=== PATIENT | female | born 1985 | race Caucasian/White ===

== ENCOUNTER 2017-11-09 15:39 | Inpatient (IN) ==
[2017-11-09] MEDS ORDERED: Morphine Inj 4 MG/ML Vial IV.PUSH ONE (16:44)
[2017-11-09] MEDS: Sod Chloride 0.9% Inj 1,000 ML IV.SIG SCH ×4 (16:50→23:50)
[2017-11-09 16:56] LABS: Baso # (Auto) 0.1 th/mm3 (0.0-0.2); Baso % (Auto) 0.5 % (0.0-2.0); Eos % (Auto) 0.2 % (0.0-4.0); Hematocrit 37.7 % (35.0-46.0); Hemoglobin 13.2 gm/dL (11.6-15.3); Lymph # (Auto) 0.9 th/mm3 (1.0-4.8); Lymph % (Auto) 4.4 % (9.0-44.0); Mean Corpuscular Hemoglobin 30.9 pg (27.0-34.0); Mean Corpuscular Volume 88.4 fL (80.0-100.0); Mean Platelet Volume 8.1 fL (7.0-11.0); Mono # (Auto) 0.8 th/mm3 (0.0-0.9); Mono % (Auto) 3.9 % (0.0-8.0); Neut # (Auto) 19.3 th/mm3 (1.8-7.7); Platelet Count 292 th/mm3 (150-450); Red Blood Count 4.26 mil/mm3 (4.00-5.30); Red Cell Distribution Width 12.5 % (11.6-17.2); White Blood Count 21.1 th/mm3 (4.0-11.0)
[2017-11-09 17:03] LABS: Potassium 4.7 meq/L (3.5-5.1)
[2017-11-09 17:05] LABS: Calcium 8.6 mg/dL (8.5-10.1)
[2017-11-09 17:06] LABS: Carbon Dioxide 27.6 meq/L (21.0-32.0)
--- NOTE | 2017-11-09 17:18 | ED ---
HPI General Chief Complaint: Shortness of Breath/Dyspnea Stated Complaint: Back Pain/Rt Shoulder Pain/Difficulting Breathing Source: patient Mode of arrival: ambulatory Limitations: no limitations History of Present Illness MD complaint: chest pain Complete Quality Measures for STEMI Alert Patients STEMI Alert: No Onset (ago): day(s) (1) Duration: constant (It does wax and wane. She states that it is occasionally exquisitely tender to the touch.) and progressively worsening Pain location: right chest Severity scale (1-10): 10 Quality: sharp Pain radiation: RUE (Shoulder) Relieving factors: nothing Exacerbating factors: nothing Treatments prior to arrival chest pain: none Related Data Allergies Allergy/AdvReac Type Severity Reaction Status Date / Time aripiprazole Allergy Severe TONGUE Verified 11/09/17 16:17 SWELLING buspirone Allergy Severe VERY Verified 11/09/17 16:17 AGGRESSIVE BEHAVIOR, RASH Review of Systems ROS: all other systems reviewed are negative [facility] Medical History Medical History Bipolar 1 disorder (Chronic) Surgical History Surgical History History of tonsillectomy and adenoidectomy (Acute) Social History Social History Recent Travel in [place] within the Last 8 Weeks: No Recent Out of Country Travel within the Last 8 Weeks: No Exam Const General: cooperative, healthy appearing and acute distress Orientation: alert, awake and oriented x3 HENMT Head: normal to inspection, normocephalic and atraumatic Eyes General: appearance normal, both eyes and all related structures Conjunctivae: conjunctivae normal Sclera: sclerae normal EOM: EOM intact bilaterally Neck Neck: normal visual inspection and full ROM Chest Chest: normal inspection of the chest, tenderness other (Right lateral chest wall) and No rash Resp Effort & Inspection: normal respiratory effort and able to speak in complete sentences Auscultation: clear to auscultation bilaterally Cardio Rate: regular rate Rhythm: regular rhythm Heart Sounds: S1 normal and S2 normal Other: Initial blood pressure was low at 82. She states that her normal systolic blood pressure is 120. GI Inspection: normal to inspection Palpation: soft Back/Spine/Pelvis Cervical Spine: cervical ROM normal Thoracic/Lumbar Spine: thoraco-lumbar ROM normal Skin General: no rashes or lesions noted, turgor normal and dry skin Neuro General: alert, awake, oriented x3, moves all extremities and CN's II-XI intact bilaterally Extrem General: normal to inspection, full ROM and no pedal edema Psych Appearance: grossly normal Mental Status: mental status grossly normal Speech and Movement: speech and movement normal Mood: congruent mood Affect: normal affect Attitude: cooperative Thought Process: normal Thought Content: normal Judgment: judgment good Course Reevaluation(s) Reevaluation #1: Blood pressure has remained persistently low. She also has a leukocytosis. I have added blood cultures and a lactic acid to her evaluation. Her blood pressure has continued to be low. She needs to be admitted to the hospital. Time: 17:43 Consultations Consultation #1: Dr. Byers will admit to the ICU because of persistent low BP. Time: 18:41 Initial Documented Vital Signs Temperature 97.5 F L 11/09/17 16:12 Pulse Rate 78 11/09/17 16:12 Respiratory Rate 16 11/09/17 16:12 Blood Pressure 82/46 L 11/09/17 16:12 Pulse Oximetry 96 11/09/17 16:12 Last Documented Vital Signs Temperature 97.5 F L 11/09/17 16:12 Pulse Rate 76 11/09/17 18:37 Respiratory Rate 18 11/09/17 18:37 Blood Pressure 90/48 L 11/09/17 18:37 Pulse Oximetry 97 11/09/17 18:37 Critical Care Time Critical Care Time: Yes Total Critical Care Time: 45 Attestation: Time to perform other separately billable procedures was not included in the critical care time. My time did not include minutes spent treating any other patients simultaneously or on activities that did not directly contribute to the patient's treatment. The services I provided to this patient were to treat and/or prevent clinically significant deterioration due to right-sided chest pain with hypotension I provided critical care services requiring my management, as noted below: Chart data review, documentation time, medication orders and management, vital sign assessments/reviewing monitor data, ordering and reviewing lab tests, ordering and interpreting/reviewing x-rays and diagnostic studies, care of the patient and discussion of the patient with the admitting physicians Medical Decision Making MDM Narrative Medical decision making narrative: Patient presents with a chief complaint of right lateral chest pain. On exam, she is hypotensive. She does have chest wall tenderness. She is receiving IV fluid bolus for the hypotension. CT for PE has been ordered. CT shows pneumonia on the right. I have ordered IV Rocephin and IV Zithromax. Her disposition will be dependent upon her blood pressure. Medical Screen Exam Complete: Yes Emergency Medical Condition: Yes Differential Diagnosis Differential Diagnosis: Differential diagnosis of chest pain includes but is not limited to musculoskeletal pain, pulmonary embolism, acute coronary syndrome , pneumonia, pleurisy Lab Data Lab results reviewed: Yes I reviewed the patient's lab results. Result diagrams: 11/09/17 16:47 11/09/17 16:47 POC Results POC Urine Results Negative Lab Results 11/09/17 11/09/17 11/09/17 Range/Units 16:46 16:47 16:47 CBC w Diff Auto diff final WBC 21.1 H (4.0-11.0) th/mm3 RBC 4.26 (4.00-5.30) mil/mm3 Hgb 13.2 (11.6-15.3) gm/dL Hct 37.7 (35.0-46.0) % MCV 88.4 (80.0-100.0) fL MCH 30.9 (27.0-34.0) pg MCHC 35.0 (32.0-36.0) % RDW 12.5 (11.6-17.2) % Plt Count 292 (150-450) th/mm3 MPV 8.1 (7.0-11.0) fL Neut % (Auto) 91.0 H (16.0-70.0) % Lymph % (Auto) 4.4 L (9.0-44.0) % [place] % (Auto) 3.9 (0.0-8.0) % Eos % (Auto) 0.2 (0.0-4.0) % Baso % (Auto) 0.5 (0.0-2.0) % Neut # (Auto) 19.3 H (1.8-7.7) th/mm3 Lymph # (Auto) 0.9 L (1.0-4.8) th/mm3 [place] # (Auto) 0.8 (0.0-0.9) th/mm3 Eos # (Auto) 0.0 (0.0-0.4) th/mm3 Baso # (Auto) 0.1 (0.0-0.2) th/mm3 WBC Differential . Differential Comment . Sodium 135 L (136-145) meq/L Potassium 4.7 (3.5-5.1) meq/L Chloride 101 (98-107) meq/L Carbon Dioxide 27.6 (21.0-32.0) meq/L Anion Gap 6 (5-15) meq/L BUN 17 (7-18) mg/dL Creatinine 1.20 H (0.50-1.00) mg/dL Estimated GFR 51 L (>89) mL/min Random Glucose 102 (74-106) mg/dL Lactic Acid (0.4-2.0) mmol/L Calcium 8.6 (8.5-10.1) mg/dL Ur Collection Type Clean catch Urine Color Shirin H (Yellw/Straw) Urine Clarity Cloudy H (Clear) Urine pH 5.5 (5.0-8.5) Ur Specific [place] 1.020 (1.002-1.035) Urine Protein 30 H (Neg-Trace) mg/dL Urine Glucose (UA) Negative (Negative) mg/dL Urine Ketones Trace H (Negative) mg/dL Urine Occult Blood Negative (Negative) Urine Nitrate Positive H (Negative) Urine Bilirubin Negative (Negative) Urine Urobilinogen 1.0 (Less than 2) mg/dL Ur Leukocyte Esterase Large H (Negative) Urine WBC 9-20 H (0-5) /hpf Ur Squamous Epith Cells Greater than 10 H (0-5) /hpf Urine Bacteria Moderate H (None) /hpf Urine Yeast Few H (None) /hpf Micro UA Comment Culture indicated Ur Microscopic Review Microscopic reviewed Urine Culture Comments Culture indicated 11/09/17 Range/Units 18:11 CBC w Diff WBC (4.0-11.0) th/mm3 RBC (4.00-5.30) mil/mm3 Hgb (11.6-15.3) gm/dL Hct (35.0-46.0) % MCV (80.0-100.0) fL MCH (27.0-34.0) pg MCHC (32.0-36.0) % RDW (11.6-17.2) % Plt Count (150-450) th/mm3 MPV (7.0-11.0) fL Neut % (Auto) (16.0-70.0) % Lymph % (Auto) (9.0-44.0) % [place] % (Auto) (0.0-8.0) % Eos % (Auto) (0.0-4.0) % Baso % (Auto) (0.0-2.0) % Neut # (Auto) (1.8-7.7) th/mm3 Lymph # (Auto) (1.0-4.8) th/mm3 [place] # (Auto) (0.0-0.9) th/mm3 Eos # (Auto) (0.0-0.4) th/mm3 Baso # (Auto) (0.0-0.2) th/mm3 WBC Differential Differential Comment Sodium (136-145) meq/L Potassium (3.5-5.1) meq/L Chloride (98-107) meq/L Carbon Dioxide (21.0-32.0) meq/L Anion Gap (5-15) meq/L BUN (7-18) mg/dL Creatinine (0.50-1.00) mg/dL Estimated GFR (>89) mL/min Random Glucose (74-106) mg/dL Lactic Acid 0.8 (0.4-2.0) mmol/L Calcium (8.5-10.1) mg/dL Ur Collection Type Urine Color (Yellw/Straw) Urine Clarity (Clear) Urine pH (5.0-8.5) Ur Specific [place] (1.002-1.035) Urine Protein (Neg-Trace) mg/dL Urine Glucose (UA) (Negative) mg/dL Urine Ketones (Negative) mg/dL Urine Occult Blood (Negative) Urine Nitrate (Negative) Urine Bilirubin (Negative) Urine Urobilinogen (Less than 2) mg/dL Ur Leukocyte Esterase (Negative) Urine WBC (0-5) /hpf Ur Squamous Epith Cells (0-5) /hpf Urine Bacteria (None) /hpf Urine Yeast (None) /hpf Micro UA Comment Ur Microscopic Review Urine Culture Comments Imaging Data Radiologist's impression: Chest CTA 11/09/17 16:45 CONCLUSION: 1. No evidence of pulmonary embolus. 2. There are patchy infiltrates in the posterior right upper lung as well as in the posterior right lower lung characteristic of pneumonia. ECG Data EKG Prior to Arrival: No Attestation: I personally reviewed and interpreted this ECG as follows: Discharge Plan Discharge Disposition Patient Disposition: 30 Still Patient Discharge Details Diagnosis: Right-sided chest pain, Acute hypotension, Leukocytosis, Pneumonia, Urinary tract infection Physicians Team ED Provider: Rachelle Bishop Primary Care Provider: Primary Care Dana,No Status ED Status: With Doctor
[2017-11-09] MEDS ORDERED: Sod Chloride 0.9% Inj 1,000 ML IV.SIG SCH ×2 (17:45→23:00)
--- NOTE | 2017-11-09 17:54 | CT ---
EXAM DATE: 11/09/2017 5:50 PM EDT AGE/SEX: 32 years / Female INDICATIONS: Right chest pain. Difficulty breathing. Right shoulder pain. Evaluate for embolism. CLINICAL DATA: This is the patient's initial encounter. Patient reports that signs and symptoms have been present for 1 day and indicates a pain score of 8/10. MEDICAL/SURGICAL HISTORY: None. section. RADIATION DOSE: 14.12 CTDI (mGy) COMPARISON: No prior exams available for comparison. TECHNIQUE: Volumetric scanning was performed using a multi-row detector CT scanner during bolus infu luma of 75 ml Omnipaque 350 (iohexol) nonionic water-soluble contrast as a single exam dose. The alena a was post processed with a variety of visualization algorithms including full volume maximum intensi ty projection and sliding thin slab reformation. Using automated exposure control and adjustment of t he mA and/or kV according to patient size, radiation dose was kept as low as reasonably achievable to obtain optimal diagnostic quality images. DICOM format image data is available electronically for r eview and comparison. FINDINGS: Pulmonary Arteries: No filling defects are seen in the pulmonary arteries out to the subsegmental ve ssels. The left and right pulmonary arteries are normal in diameter. Lung: There is a diffuse patchy infiltrate involving the posterior right upper lung and right lower lung. There is also atelectasis in the posterior right lower lung. The left lung is grossly clear. Effusion: None. Mediastinum: No evidence of mediastinal or hilar adenopathy. Other: The axilla is unremarkable. CONCLUSION: 1. No evidence of pulmonary embolus. 2. There are patchy infiltrates in the posterior right upper lung as well as in the posterior right lower lung characteristic of pneumonia. Electronically signed by: Ed Paredes MD 11/09/2017 5:53 PM EDT
[2017-11-09] MEDS ORDERED: Azithromycin Inj 500 MG in Sodium Chlor 0.9% Inj 250 ML IV.SIG ONE (17:57)
[2017-11-09 18:18] LABS: Clarity,Urine Cloudy (Clear); Color,Urine Amber (Yellw/Straw); Glucose,Urine (UA) Negative (Negative); Leukocyte Esterase,Urine Large (Negative); Nitrite,Urine Positive (Negative); PH,Urine 5.5 (5.0-8.5)
[2017-11-09 18:19] LABS: Bilirubin,Urine Negative (Negative)
[2017-11-09 18:25] LABS: Squamous Epithelial Cell,Urine Greater than 10 /hpf (0-5)
[2017-11-09] MEDS ORDERED: Ketorolac Inj 30 MG/ML (IVP) Vial IV.PUSH ONE (18:25)
[2017-11-09 18:27] LABS: Bacteria,Urine Moderate /hpf
[2017-11-09] MEDS ORDERED: Bisacodyl 10 MG Supp RECTAL PRN (19:32)
--- NOTE | 2017-11-09 19:32 | P.HP ---
History of Present Illness Service: Hospitalist Primary Care Physician: No Primary Care Physician Chief Complaint: Right sided chest pain, Dyspnea, Shoulder pain History of Present Illness: Ms. Carrero is a pleasant 32 year old female with a history of Bipolar disorder who presents to the ED on 11/10/2017 due to right sided chest wall pain , right shoulder pain and dyspnea. She reports some cough and low grade fever of about 100F at home. On arrival, she was found to be hypotensive, significant leukocytosis with WBC 21.1K. Lactic acid 0.8. Patient was given NS boluses and started on Ceftriaxone and Azithromycin in the ED. Patient denies any hemoptysis , abdominal pain. No changes in bowel or bladder habits. Family history: Mother has no significant medical problems. Social history: Patient denies using tobacco, alcohol or illicit drugs. Inpatient Certification: I certify that the inpatient services were ordered in accordance with Medicare regulations governing the order. This includes certification that hospital inpatient services are reasonable and necessary and in the case of services not specified as inpatient-only under 42 CFR 419.22(n), that they are appropriately provided as inpatient services in accordance to with the 2-midnight benchmark under 43 CFR 412.3(e) Review of Systems All other systems reviewed negative except as stated in HPI PMFSH - History History Provided By: Patient - Medical History Medical History: Medical History (Last Updated 11/09/17 @ 17:15 by Rachelle Bishop) Bipolar 1 disorder - Surgical History Surgical History: Surgical History (Last Updated 11/09/17 @ 18:39 by Theresa Salgado RN) History of tonsillectomy and adenoidectomy - Tobacco History Second Hand Smoke Exposure: No Tobacco Use In Past 30 Days: No Smoking Status: Never smoker - Alcohol History How Often Do You Have a Drink Containing Alcohol: Never - Substance Use History Substance History: No History of Abuse - Travel History Recent Travel in the [place] Within the Last 8 Weeks: No Recent Travel Out of the Country Within the Last 8 Weeks: No - Immunization History Tetanus Immunization: Never Vaccinated Hx Influenza Vaccine This Season: No Medications and Allergies Active Medications: Active Medications Sodium Chloride (Ns Inj) 1,000 mls @ 0 mls/hr IV.SIG BOLUS WEST Last Infusion: 11/09/17 19:06 Dose: Infused Sodium Chloride (Ns Inj) 1,000 mls @ 0 mls/hr IV.SIG BOLUS WEST Last Admin: 11/09/17 18:31 Dose: 1,000 mls/hr Allergies Allergy/AdvReac Type Severity Reaction Status Date / Time aripiprazole Allergy Severe TONGUE Verified 11/09/17 16:17 SWELLING buspirone Allergy Severe VERY Verified 11/09/17 16:17 AGGRESSIVE BEHAVIOR, RASH Home Medications Medication Instructions Recorded Confirmed Type bupropion HCl 150 mg PO QAM 11/09/17 11/09/17 History dextroamphetamine-amphetamine 10 mg PO DAILY 11/09/17 11/09/17 History [Adderall] fluoxetine 30 mg PO DAILY 11/09/17 11/09/17 History lamotrigine 50 mg PO HS 11/09/17 11/09/17 History Exam Vital signs: Vital Signs 11/09/17 16:12 11/09/17 16:32 11/09/17 16:44 Temperature 97.5 F L Pulse Rate 78 66 66 Respiratory Rate 16 18 Blood Pressure 82/46 L 92/48 L Pulse Oximetry 96 95 95 11/09/17 17:40 11/09/17 18:37 Temperature Pulse Rate 72 76 Respiratory Rate 18 18 Blood Pressure 85/44 L 90/48 L Pulse Oximetry 97 97 Intake & Output 11/09/17 11/09/17 11/10/17 06:59 18:59 06:59 Intake Total 1000 / 1000 1100 / 1100 Balance 1000 / 1000 1100 / 1100 Weight 81.9 kg Intake: IV 1000 / 1000 1100 / 1100 NS Inj 1,000 ML @ Wide Open IV. 1000 / 1000 1000 / 1000 SIG BOLUS [facility] Rx#:[id number] Rocephin Inj 2,000 MG In NS Inj 100 / 100 100 ML @ 200 mls/hr IV.SIG ONCE ONE Rx#:[id number] Narrative: GENERAL: This is a well-nourished, well-developed patient, in no apparent distress. SKIN: No rashes, ecchymoses or lesions. Warm and dry. HEAD: Atraumatic. Normocephalic. No temporal or scalp tenderness. EYES: Pupils equal round and reactive. No injection or drainage. ENT: Nose without bleeding, purulent drainage or septal hematoma. Airway patent. NECK: Trachea midline. No lymphadenopathy. Supple, nontender, no meningeal signs. CARDIOVASCULAR: Regular rate and rhythm without murmurs, gallops, or rubs. No JVD. RESPIRATORY: Clear to auscultation. Breath sounds equal bilaterally. No wheezes , rales, or rhonchi. GASTROINTESTINAL: Abdomen soft, non-tender, nondistended. No guarding. MUSCULOSKELETAL: Extremities without clubbing, cyanosis, or edema. NEUROLOGICAL: Awake and alert. Cranial nerves II through XII intact. No focal neurological deficits. Normal speech. Results - Labs CBC & Chem 7: 11/10/17 04:50 11/10/17 04:50 Labs: Laboratory Results - last 24 hr 11/09/17 11/09/17 11/09/17 16:46 16:47 16:47 CBC w Diff Auto diff final WBC 21.1 H RBC 4.26 Hgb 13.2 Hct 37.7 MCV 88.4 MCH 30.9 MCHC 35.0 RDW 12.5 Plt Count 292 MPV 8.1 Neut % (Auto) 91.0 H Lymph % (Auto) 4.[address] % (Auto) 3.9 Eos % (Auto) 0.2 Baso % (Auto) 0.5 Neut # (Auto) 19.3 H Lymph # (Auto) 0.[address] # (Auto) 0.8 Eos # (Auto) 0.0 Baso # (Auto) 0.1 WBC Differential . Differential Comment . Sodium 135 L Potassium 4.7 Chloride 101 Carbon Dioxide 27.6 Anion Gap 6 BUN 17 Creatinine 1.20 H Estimated GFR 51 L Random Glucose 102 Lactic Acid Calcium 8.6 Ur Collection Type Clean catch Urine Color Shirin H Urine Clarity Cloudy H Urine pH 5.5 Ur Specific [place] 1.020 Urine Protein 30 H Urine Glucose (UA) Negative Urine Ketones Trace H Urine Occult Blood Negative Urine Nitrate Positive H Urine Bilirubin Negative Urine Urobilinogen 1.0 Ur Leukocyte Esterase Large H Urine WBC 9-20 H Ur Squamous Epith Cells Greater than 10 H Urine Bacteria Moderate H Urine Yeast Few H Micro UA Comment Culture indicated Ur Microscopic Review Microscopic reviewed Urine Culture Comments Culture indicated 11/09/17 18:11 CBC w Diff WBC RBC Hgb Hct MCV MCH MCHC RDW Plt Count MPV Neut % (Auto) Lymph % (Auto) Lane % (Auto) Eos % (Auto) Baso % (Auto) Neut # (Auto) Lymph # (Auto) Lane # (Auto) Eos # (Auto) Baso # (Auto) WBC Differential Differential Comment Sodium Potassium Chloride Carbon Dioxide Anion Gap BUN Creatinine Estimated GFR Random Glucose Lactic Acid 0.8 Calcium Ur Collection Type Urine Color Urine Clarity Urine pH Ur Specific [place] Urine Protein Urine Glucose (UA) Urine Ketones Urine Occult Blood Urine Nitrate Urine Bilirubin Urine Urobilinogen Ur Leukocyte Esterase Urine WBC Ur Squamous Epith Cells Urine Bacteria Urine Yeast Micro UA Comment Ur Microscopic Review Urine Culture Comments - Imaging Impressions Chest CTA 11/09/17 16:45 CONCLUSION: 1. No evidence of pulmonary embolus. 2. There are patchy infiltrates in the posterior right upper lung as well as in the posterior right lower lung characteristic of pneumonia. Caprini VTE Risk Assessment Caprini VTE Risk Assessment: Moderate/High Risk (score >= 2) Caprini Risk Assessment Model: Point Value = 1 Point Value = 2 Point Value = 3 Point Value = 5 Age 41-60 Minor surgery BMI > 25 kg/m2 Swollen legs Varicose veins or History of unexplained or recurrent spontaneous Oral contraceptives or hormone replacement Sepsis (< 1 month) Serious lung disease, including pneumonia (< 1 month) Abnormal pulmonary function Acute myocardial infarction Congestive heart failure (< 1 month) History of inflammatory bowel disease Medical patient at bed rest Age 61-74 Arthroscopic surgery Major open surgery (> 45 min) Laparoscopic surgery (> 45 min) Malignancy Confined to bed (> 72 hours) Immobilizing plaster cast Central venous access Age >= 75 History of VTE Family history of VTE Factor V Leiden Prothrombin [id number] Lupus anticoagulant Anticardiolipin antibodies Elevated serum homocysteine Heparin-induced thrombocytopenia Other congenital or acquired thrombophilia Stroke (< 1 month) Elective arthroplasty Hip, pelvis, or leg fracture Acute spinal cord injury (< 1 month) Prophylaxis Regimen: Total Risk Factor Score Risk Level Prophylaxis Regimen 0-1 Low Early ambulation 2 Moderate Order ONE of the following: *Sequential Compression Device (SCD) *Heparin 5000 units SQ BID 3-4 Higher Order ONE of the following medications: *Heparin 5000 units SQ TID *Enoxaparin/Lovenox 40 mg SQ daily (WT < 150 kg, CrCl > 30 mL/min) *Enoxaparin/Lovenox 30 mg SQ daily (WT < 150 kg, CrCl > 10-29 mL/min) *Enoxaparin/Lovenox 30 mg SQ BID (WT < 150 kg, CrCl > 30 mL/min) AND/OR *Sequential Compression Device (SCD) 5 or more Highest Order ONE of the following medications: *Heparin 5000 units SQ TID (Preferred with Epidurals) *Enoxaparin/Lovenox 40 mg SQ daily (WT < 150 kg, CrCl > 30 mL/min) *Enoxaparin/Lovenox 30 mg SQ daily (WT < 150 kg, CrCl > 10-29 mL/min) *Enoxaparin/Lovenox 30 mg SQ BID (WT < 150 kg, CrCl > 30 mL/min) AND *Sequential Compression Device (SCD) Assessment and Plan - Plan Ms. Carrero is a pleasant 32 year old female with a history of bipolar disorder who was admitted to the hospital due to right sided chest wall pain, shortness of breath. CT chest showed right sided pneumonia. Sepsis (WBC 21.1, HR > 90, Pneumonia) Right sided pneumonia - No risk factors for aspiration. - Will start patient on Ceftriaxone 2g Qday and Levaquin 750mg Qday - Will check Lactic acid again. Initial Lactic acid 0.8. Hypotension - Pt received NS bolus in the ED. BP remains low around 90 systolic. - Asymptomatic. - Will give additional 2 L bolus and then continue 150cc/hour. Acute kidney injury - Creatinine 1.20. Will re-check BMP in the AM. Bipolar disorder - hold off using psychotropic meds for now. Full code. Lovenox. Discussed with RN around 10:30PM. Patient's BP remains low but asymptomatic. Repeat lactic acid 1.4. Although suspicion is low, right sided pneumonia with left lung clear raises suspicion for aspiration. Will d/c Ceftriaxone for now and start Zosyn 4.5g Q6hrs.
[2017-11-09] MEDS ORDERED: Morphine Inj 4 MG/ML Vial IV.PUSH PRN (19:36)
[2017-11-09] MEDS: Sod Chloride 0.9% Inj 1,000 ML IV.CONT SCH (20:31)
[2017-11-09] MEDS: Enoxaparin Inj 40 MG/0.4 ML Syringe SQ SCH (21:15)
[2017-11-10] MEDS: Piperacil/Tazo 4.5 GM Premix 4.5 GM/100 ML BAG IV.SIG SCH ×5 (00:32→23:14)
[2017-11-10] MEDS: Sod Chloride 0.9% Inj 1,000 ML IV.SIG SCH ×2 (01:00→02:58)
[2017-11-10 06:13] LABS: Calcium 7.3 mg/dL (8.5-10.1); Carbon Dioxide 23.3 meq/L (21.0-32.0); Potassium 4.2 meq/L (3.5-5.1)
[2017-11-10 06:26] LABS: Total Protein 5.4 g/dL (6.4-8.2)
[2017-11-10 06:34] LABS: Baso # (Auto) 0.1 th/mm3 (0.0-0.2); Baso % (Auto) 0.6 % (0.0-2.0); Eos # (Auto) 0.1 th/mm3 (0.0-0.4); Eos % (Auto) 0.9 % (0.0-4.0); Hematocrit 31.5 % (35.0-46.0); Lymph # (Auto) 1.5 th/mm3 (1.0-4.8); Lymph % (Auto) 9.5 % (9.0-44.0); Mean Corpuscular HGB Conc 34.6 % (32.0-36.0); Mean Corpuscular Hemoglobin 32.2 pg (27.0-34.0); Mean Platelet Volume 8.7 fL (7.0-11.0); Mono # (Auto) 1.5 th/mm3 (0.0-0.9); Mono % (Auto) 9.7 % (0.0-8.0); Neut # (Auto) 12.6 th/mm3 (1.8-7.7); Neut % (Auto) 79.3 % (16.0-70.0); Platelet Count 221 th/mm3 (150-450); Red Blood Count 3.39 mil/mm3 (4.00-5.30); Red Cell Distribution Width 11.7 % (11.6-17.2); White Blood Count 15.8 th/mm3 (4.0-11.0)
[2017-11-10 06:41] LABS: Hemoglobin 10.9 gm/dL (11.6-15.3)
[2017-11-10] MEDS: Sod Chloride 0.9% Inj 1,000 ML IV.CONT SCH ×3 (06:49→17:20)
[2017-11-10] MEDS: Acetaminophen 325 MG Tablet PO PRN ×2 (08:26→16:16)
--- NOTE | 2017-11-10 09:54 | ECG ---
Date Performed: 11/09/2017 Time Performed: 16:47:20 PTAGE: 32 years EKG: Sinus rhythm NORMAL ECG Since the PREVIOUS TRACING , no significant change noted PREVIOUS TRACIN11/02/2015 09.21 DOCTOR: Trav Salgado Interpretating Date/Time 11/10/2017 09:51:12
--- NOTE | 2017-11-10 13:03 | P.PN ---
Subjective Interval history: Follow-up for right-sided pneumonia, severe sepsis. Patient is currently doing well. She does not have any chest pain, shortness of breath, fever or chills. Despite having low blood pressure, she remains asymptomatic. Physical Exam Vital signs: Vital Signs 11/09/17 16:12 11/09/17 16:32 11/09/17 16:44 Temperature 97.5 F L Pulse Rate 78 66 66 Respiratory Rate 16 18 Blood Pressure 82/46 L 92/48 L Pulse Oximetry 96 95 95 11/09/17 17:40 11/09/17 18:37 11/09/17 20:42 Temperature Pulse Rate 72 76 77 Respiratory Rate 18 18 16 Blood Pressure 85/44 L 90/48 L 94/52 L Pulse Oximetry 97 97 11/09/17 21:41 11/09/17 21:50 11/09/17 21:52 Temperature 98.3 F Pulse Rate 92 H 96 H Respiratory Rate 16 22 16 Blood Pressure 88/40 L 88/40 L Pulse Oximetry 11/09/17 23:00 11/09/17 23:16 11/09/17 23:18 Temperature 98.7 F Pulse Rate 79 79 Respiratory Rate 23 15 Blood Pressure 94/41 L Pulse Oximetry 100 11/10/17 00:00 11/10/17 04:00 11/10/17 05:54 Temperature 98.7 F 99.3 F Pulse Rate 76 77 57 L Respiratory Rate 29 H 27 H Blood Pressure 87/52 L 90/46 L 87/42 L Pulse Oximetry 95 95 100 11/10/17 06:50 11/10/17 07:00 11/10/17 08:00 Temperature 97.8 F Pulse Rate 54 L 56 L Respiratory Rate 12 17 20 Blood Pressure 76/43 L 85/55 L Pulse Oximetry 98 11/10/17 08:43 11/10/17 09:00 11/10/17 10:00 Temperature 98.9 F Pulse Rate 58 L 52 L Respiratory Rate 16 20 Blood Pressure 95/52 L 89/49 L Pulse Oximetry 11/10/17 11:00 11/10/17 12:00 11/10/17 12:42 Temperature 98.8 F Pulse Rate 52 L Respiratory Rate 26 H 20 Blood Pressure 96/56 L Pulse Oximetry Intake & Output 11/09/17 11/10/17 11/10/17 18:59 06:59 18:59 Intake Total 1000 / 1000 6770 / 6770 1580 / 1580 Output Total 750 / 750 Balance 1000 / 1000 6020 / 6020 1580 / 1580 Weight 81.9 kg 84.4 kg Intake: IV 1000 / 1000 6450 / 6450 1100 / 1100 NS Inj 1,000 ML @ 150 mls/hr IV 1000 / 1000 1000 / 1000 .CONT .Q6H40M WEST Rx#: [id number] Azithromycin Inj 500 MG In NS 250 / 250 Inj 250 ML @ 500 mls/hr IV.SIG ONCE ONE Rx#:[id number] Zosyn 4.5 GM Premix 4.5 gm In 100 / 100 100 / 100 100 ml @ 200 mls/hr IV.SIG Q6H WEST Rx#:[id number] NS Inj 1,000 ML @ Wide Open IV. 1000 / 1000 5000 / 5000 SIG BOLUS WEST Rx#:[id number] Rocephin Inj 2,000 MG In NS Inj 100 / 100 100 ML @ 200 mls/hr IV.SIG ONCE ONE Rx#:[id number] Oral 320 / 320 480 / 480 Output: Urine 750 / 750 Other: # Voids 2 Date of Last Bowel Movement 11/09/17 Weight On Admission 84.4 kg Narrative: GENERAL: Alert, oriented 3, NAD. SKIN: Warm and dry. HEAD: Normocephalic. EYES: No scleral icterus. No injection or drainage. NECK: Supple, trachea midline. No JVD or lymphadenopathy. CARDIOVASCULAR: Regular rate and rhythm without murmurs, gallops, or rubs. RESPIRATORY: Breath sounds equal bilaterally. No accessory muscle use. GASTROINTESTINAL: Abdomen soft, non-tender, nondistended. MUSCULOSKELETAL: No cyanosis, or edema. BACK: Nontender without obvious deformity. No CVA tenderness. Results - Labs CBC & Chem 7: 11/10/17 04:50 11/10/17 04:50 Laboratory Results - last 24 hr 11/09/17 11/09/17 11/09/17 16:46 16:47 16:47 CBC w Diff Auto diff final WBC 21.1 H RBC 4.26 Hgb 13.2 Hct 37.7 MCV 88.4 MCH 30.9 MCHC 35.0 RDW 12.5 Plt Count 292 MPV 8.1 Neut % (Auto) 91.0 H Lymph % (Auto) 4.4 L [place] % (Auto) 3.9 Eos % (Auto) 0.2 Baso % (Auto) 0.5 Neut # (Auto) 19.3 H Lymph # (Auto) 0.9 L [place] # (Auto) 0.8 Eos # (Auto) 0.0 Baso # (Auto) 0.1 WBC Differential . Differential Comment . Sodium 135 L Potassium 4.7 Chloride 101 Carbon Dioxide 27.6 Anion Gap 6 BUN 17 Creatinine 1.20 H Estimated GFR 51 L Random Glucose 102 Lactic Acid Calcium 8.6 Prot Corrected Calcium Total Protein Ur Collection Type Clean catch Urine Color Shirin H Urine Clarity Cloudy H Urine pH 5.5 Ur Specific [place] 1.020 Urine Protein 30 H Urine Glucose (UA) Negative Urine Ketones Trace H Urine Occult Blood Negative Urine Nitrate Positive H Urine Bilirubin Negative Urine Urobilinogen 1.0 Ur Leukocyte Esterase Large H Urine WBC 9-20 H Ur Squamous Epith Cells Greater than 10 H Urine Bacteria Moderate H Urine Yeast Few H Micro UA Comment Culture indicated Ur Microscopic Review Microscopic reviewed Urine Culture Comments Culture indicated 11/09/17 11/09/17 11/10/17 18:11 22:49 04:50 CBC w Diff Auto diff final WBC 15.8 H RBC 3.39 L Hgb 10.9 L D Hct 31.5 L MCV 93.0 D MCH 32.2 MCHC 34.6 RDW 11.7 Plt Count 221 MPV 8.7 Neut % (Auto) 79.3 H Lymph % (Auto) 9.5 [place] % (Auto) 9.7 H Eos % (Auto) 0.9 Baso % (Auto) 0.6 Neut # (Auto) 12.6 H Lymph # (Auto) 1.5 [place] # (Auto) 1.5 H Eos # (Auto) 0.1 Baso # (Auto) 0.1 WBC Differential . Differential Comment . Sodium Potassium Chloride Carbon Dioxide Anion Gap BUN Creatinine Estimated GFR Random Glucose Lactic Acid 0.8 1.4 Calcium Prot Corrected Calcium Total Protein Ur Collection Type Urine Color Urine Clarity Urine pH Ur Specific [place] Urine Protein Urine Glucose (UA) Urine Ketones Urine Occult Blood Urine Nitrate Urine Bilirubin Urine Urobilinogen Ur Leukocyte Esterase Urine WBC Ur Squamous Epith Cells Urine Bacteria Urine Yeast Micro UA Comment Ur Microscopic Review Urine Culture Comments 11/10/17 04:50 CBC w Diff WBC RBC Hgb Hct MCV MCH MCHC RDW Plt Count MPV Neut % (Auto) Lymph % (Auto) [place] % (Auto) Eos % (Auto) Baso % (Auto) Neut # (Auto) Lymph # (Auto) [place] # (Auto) Eos # (Auto) Baso # (Auto) WBC Differential Differential Comment Sodium 140 Potassium 4.2 Chloride 112 H D Carbon Dioxide 23.3 Anion Gap 5 BUN 14 Creatinine 0.77 Estimated GFR 86 L Random Glucose 99 Lactic Acid Calcium 7.3 L* D Prot Corrected Calcium 8.2 L Total Protein 5.4 L Ur Collection Type Urine Color Urine Clarity Urine pH Ur Specific [place] Urine Protein Urine Glucose (UA) Urine Ketones Urine Occult Blood Urine Nitrate Urine Bilirubin Urine Urobilinogen Ur Leukocyte Esterase Urine WBC Ur Squamous Epith Cells Urine Bacteria Urine Yeast Micro UA Comment Ur Microscopic Review Urine Culture Comments Microbiology 11/09/17 18:11 Blood - Peripheral Aerobic Blood Culture - Preliminary No growth in 1 day 11/09/17 18:11 Blood - Peripheral Anaerobic Blood Culture - Preliminary No growth in 1 day 11/09/17 18:14 Blood - Peripheral Aerobic Blood Culture - Preliminary No growth in 1 day 11/09/17 18:14 Blood - Peripheral Anaerobic Blood Culture - Preliminary No growth in 1 day - Imaging Impressions Chest CTA 11/09/17 16:45 CONCLUSION: 1. No evidence of pulmonary embolus. 2. There are patchy infiltrates in the posterior right upper lung as well as in the posterior right lower lung characteristic of pneumonia. Assessment and Plan - Plan Ms. Carrero is a pleasant 32 year old female with a history of bipolar disorder who was admitted to the hospital due to right sided chest wall pain, shortness of breath. CT chest showed right sided pneumonia. Sepsis (WBC 21.1, HR > 90, Pneumonia) Right sided pneumonia - No risk factors for aspiration. However, due to right sided pneumonia, we will cover with Zosyn and Levaquin. - Lactic acid was 1.4 last night. Hypotension - Pt received NS bolus in the ED. BP remains low around 90 systolic. - Asymptomatic. - continue IV fluid 150cc/hour. Acute kidney injury - Creatinine 1.20 --> 0.77. Bipolar disorder - hold off using psychotropic meds for now. Full code. Lovenox.
--- NOTE | 2017-11-10 13:48 | ECHRPT ---
Indication: CONCLUSIONS The left ventricular systolic function is hyperdynamic with an estimated ejection fraction in the ra nge of 65- 70%. Left ventricular diastolic function parameters are normal. Trace mitral valve regurgitation. There is trace tricuspid valve regurgitation. No evidence of endocarditis. BP: / HR: Rhythm: Sinus MEASUREMENTS (Male / Female) Normal Values Technical Quality:Good 2D ECHO LV Diastolic Diameter PLAX 4.7 cm 4.2 - 5.9 / 3.9 - 5.3 cm LV Systolic Diameter PLAX 3.3 cm IVS Diastolic Thickness 1.0 cm 0.6 - 1.0 / 0.6 - 0.9 cm LVPW Diastolic Thickness 1.0 cm 0.6 - 1.0 / 0.6 - 0.9 cm LV Relative Wall Thickness 0.4 RV Internal Dim ED PLAX 3.2 cm LVOT Diameter 2.0 cm LA Systolic Diameter LX 3.3 cm 3.0 - 4.0 / 2.7 - 3.8 cm LV Ejection Fraction MOD 4C 69.4 % LV Ejection Fraction 4C AL 67.9 % M-MODE Aortic Root Diameter MM 2.0 cm LA Systolic Diameter MM 3.3 cm LA Ao Ratio MM 1.6 AV Cusp Separation MM 1.9 cm DOPPLER AV Peak Velocity 157.0 cm/s AV Peak Gradient 9.9 mmHg LVOT Peak Velocity 112.0 cm/s LVOT Peak Gradient 5.0 mmHg AV Area Cont Eq pk 2.2 cm MV Area PHT 3.2 cm Mitral E Point Velocity 114.0 cm/s Mitral A Point Velocity 56.3 cm/s Mitral E to A Ratio 2.0 LV E' Lateral Velocity 17.3 cm/s Mitral E to LV E' Lateral Ratio 6.6 LV E' Septal Velocity 8.9 cm/s Mitral E to LV E' Septal Ratio 12.9 TR Peak Velocity 276.0 cm/s TR Peak Gradient 30.5 mmHg Right Atrial Pressure 10.0 mmHg Pulmonary Artery Systolic Pressu 40.5 mmHg Right Ventricular Systolic Press 40.5 mmHg PV Peak Velocity 106.0 cm/s PV Peak Gradient 4.5 mmHg FINDINGS LEFT VENTRICLE The left ventricular systolic function is hyperdynamic with an estimated ejection fraction in the ra nge of 65- 70%. Normal left ventricular size. Wall thickness is normal. No regional wall motion abnormalities are present. Left ventricular diastolic function parameters are normal. RIGHT VENTRICLE Normal right ventricular size and systolic function. LEFT ATRIUM The left atrial size is normal. RIGHT ATRIUM The right atrial size is normal. ATRIAL SEPTUM Normal atrial septal thickness without atrial level shunting by limited color doppler interrogation. AORTA The aortic root and proximal ascending aorta are normal in size on limited imaging. MITRAL VALVE Structurally normal mitral valve. No mitral valve stenosis. Trace mitral valve regurgitation. AORTIC VALVE Probable trileaflet aortic valve. No aortic valve stenosis or regurgitation. TRICUSPID VALVE Structurally normal tricuspid valve. There is trace tricuspid valve regurgitation. The estimated pulmonary arterial pressure is 40.5 mmHg. PULMONARY VALVE No pulmonary valve regurgitation or stenosis. VESSELS The inferior vena cava is dilated. PERICARDIUM No pericardial effusion. Melvin Howard DO (Electronically Signed) Final Date:10 November 2017 13:46
[2017-11-10] MEDS: Enoxaparin Inj 40 MG/0.4 ML Syringe SQ SCH (20:26)
[2017-11-11] MEDS: Piperacil/Tazo 4.5 GM Premix 4.5 GM/100 ML BAG IV.SIG SCH ×2 (05:21→12:47)
[2017-11-11] MEDS: Sod Chloride 0.9% Inj 1,000 ML IV.CONT SCH ×3 (05:22→10:00)
[2017-11-11 06:24] VITALS: O2SAT 95
[2017-11-11 06:45] LABS: Baso % (Auto) 0.4 % (0.0-2.0); Eos # (Auto) 0.2 th/mm3 (0.0-0.4); Eos % (Auto) 2.2 % (0.0-4.0); Hematocrit 31.2 % (35.0-46.0); Hemoglobin 11.2 gm/dL (11.6-15.3); Lymph # (Auto) 1.8 th/mm3 (1.0-4.8); Lymph % (Auto) 20.1 % (9.0-44.0); Mean Corpuscular HGB Conc 35.8 % (32.0-36.0); Mean Corpuscular Hemoglobin 31.8 pg (27.0-34.0); Mean Corpuscular Volume 88.9 fL (80.0-100.0); Mean Platelet Volume 8.1 fL (7.0-11.0); Mono # (Auto) 0.9 th/mm3 (0.0-0.9); Mono % (Auto) 10.4 % (0.0-8.0); Neut # (Auto) 6.2 th/mm3 (1.8-7.7); Neut % (Auto) 66.9 % (16.0-70.0); Platelet Count 243 th/mm3 (150-450); Red Blood Count 3.51 mil/mm3 (4.00-5.30); Red Cell Distribution Width 12.6 % (11.6-17.2); White Blood Count 9.1 th/mm3 (4.0-11.0)
[2017-11-11 09:22] VITALS: TEMP 98.4
--- NOTE | 2017-11-11 12:00 | US ---
EXAM DATE: 11/11/2017 11:49 AM EDT AGE/SEX: 32 years / Female INDICATIONS: Right sided pain. CLINICAL DATA: This is the patient's initial encounter. Patient reports that signs and symptoms have been present for 2 days and indicates a pain score of 5/10. MEDICAL/SURGICAL HISTORY: Sepsis. Right sided pneumonia. Tonsillectomy. COMPARISON: No prior exams available for comparison. MEASUREMENTS: Liver:__ 20.3 cm. Common Bile Duct:__ 7mm. FINDINGS: Liver: All mild hepatomegaly. Portal Vein: Hepatopedal flow seen in portal vein. Common Duct: No intraluminal mass or stone visualized. Gallbladder: There is pericholecystic fluid and gallbladder wall thickening up to 4.1 mm. No stones are seen. Trace sludge in the dependent portion. Pancreas: The visualized portions are within normal limits Right Kidney: Increased echotexture. No mass or hydronephrosis. Other: Small right pleural effusion.. CONCLUSION: 1. Gallbladder wall thickening and pericholecystic fluid identified. Positive sonographic Castro's s ign. These findings can be seen with acalculous cholecystitis. Electronically signed by: Diomedes Aguilar MD 11/11/2017 11:58 AM EDT
--- NOTE | 2017-11-11 12:12 | P.DS ---
Date of admission: 11/09/17 18:39 Primary care physician: No Primary Care Physician Brief History from admission: Ms. Carrero is a pleasant 32 year old female with a history of Bipolar disorder who presents to the ED on 11/10/2017 due to right sided chest wall pain , right shoulder pain and dyspnea. She reports some cough and low grade fever of about 100F at home. On arrival, she was found to be hypotensive, significant leukocytosis with WBC 21.1K. Lactic acid 0.8. Patient was given NS boluses and started on Ceftriaxone and Azithromycin in the ED. Patient denies any hemoptysis , abdominal pain. No changes in bowel or bladder habits. Family history: Mother has no significant medical problems. Social history: Patient denies using tobacco, alcohol or illicit drugs. DS: Diagnosis - Discharge Diagnosis (1) Pneumonia Status: Acute (2) Sepsis Status: Acute DS: Medications - Discharge Medications Prescriptions: amoxicillin-pot clavulanate [Augmentin] 1 tab PO Q12H #14 tab levofloxacin [Levaquin] 750 mg PO DAILY #7 tab DS: Summary Hospital Course: Ms. Carrero is a pleasant 32 year old female with a history of bipolar disorder who was admitted to the hospital due to right sided chest wall pain, shortness of breath. CT chest showed right sided pneumonia. Sepsis (WBC 21.1, HR > 90, Pneumonia) Right sided pneumonia - No risk factors for aspiration. However, due to right sided pneumonia, we will cover with Zosyn and Levaquin. - Lactic acid was 1.4 Acute kidney injury - Creatinine 1.20 --> 0.77. Patient was continued on IV fluid as well as Levaquin and Zosyn. Clinically she improved well. Her blood pressure improved. She did not require any pressors. He remained afebrile and was able to tolerate food. However she complained of right upper quadrant abdominal pain. We obtained an ultrasound study which shows possible acalculous cholecystitis. Our goal was to continue p.o. antibiotics Augmentin and Levaquin for 7 more days and then evaluate patient in the outpatient setting by general surgery for possible cholecystectomy. Due to the nature of a calculus cholecystitis and high mortality, we obtained a surgical consult while patient was in the ICU. General surgery was kind enough to evaluate patient right away and agreed with our plan to discharge patient on p.o. antibiotics and follow-up in the outpatient setting. Patient verbalized understanding. We gave patient an order for HIDA scan to be done within 2-3 days definitely prior to seeing general surgery in the outpatient setting. - Time Spent with Patient Total time spent providing and/or coordinating discharge services: Greater than 30 minutes - Quality: VTE Deep Vein Thrombosis/Pulmonary Embolism Present on Admission: No Exam Vital signs: Vital Signs 11/10/17 12:42 11/10/17 13:00 11/10/17 14:00 Temperature 97.7 F Pulse Rate 44 L 50 L Respiratory Rate 20 8 L 13 Blood Pressure 97/58 L 88/48 L Pulse Oximetry 11/10/17 15:39 11/10/17 16:00 11/10/17 17:40 Temperature Pulse Rate 46 L 44 L 44 L Respiratory Rate 20 22 24 Blood Pressure 96/54 L 113/64 111/51 L Pulse Oximetry 11/10/17 18:00 11/10/17 19:00 11/10/17 20:00 Temperature 97.9 F Pulse Rate 44 L 44 L 45 L Respiratory Rate 24 20 20 Blood Pressure 111/51 L 112/63 106/69 Pulse Oximetry 97 97 11/10/17 21:00 11/10/17 22:00 11/10/17 23:00 Temperature Pulse Rate 46 L 40 L 42 L Respiratory Rate 22 22 17 Blood Pressure 110/64 111/58 L 105/50 L Pulse Oximetry 100 99 98 11/11/17 00:00 11/11/17 01:00 11/11/17 02:00 Temperature Pulse Rate 42 L 38 L 38 L Respiratory Rate 18 16 Blood Pressure 102/60 99/55 L Pulse Oximetry 98 11/11/17 03:00 11/11/17 04:00 11/11/17 05:00 Temperature 98.5 F Pulse Rate 38 L 82 38 L Respiratory Rate 16 15 17 Blood Pressure 99/55 L 99/58 L 111/66 Pulse Oximetry 95 94 L 95 11/11/17 06:00 11/11/17 07:00 11/11/17 08:00 Temperature 98.4 F Pulse Rate 46 L 40 L 38 L Respiratory Rate 15 18 19 Blood Pressure 123/87 135/77 126/72 Pulse Oximetry 95 11/11/17 09:00 11/11/17 10:00 Temperature Pulse Rate 38 L 36 L Respiratory Rate 22 19 Blood Pressure 116/68 135/74 Pulse Oximetry Intake & Output 11/10/17 11/11/17 11/11/17 18:59 06:59 18:59 Intake Total 4120 / 4120 5625 / 5625 Output Total 1500 / 1500 950 / 950 Balance 2620 / 2620 4675 / 4675 Weight 88.8 kg Intake: IV 2200 / 2200 1350 / 1350 NS Inj 1,000 ML @ 150 mls/hr IV 2000 / 2000 1000 / 1000 .CONT .Q6H40M WEST Rx#: [id number] Levaquin 750 mg Premix Inj 150 150 / 150 ML @ 100 mls/hr IV.SIG Q24H WEST Rx#:[id number] Zosyn 4.5 GM Premix 4.5 gm In 200 / 200 200 / 200 100 ml @ 200 mls/hr IV.SIG Q6H WEST Rx#:[id number] Oral 1920 / 1920 650 / 650 Other 3625 / 3625 Output: Urine 1500 / 1500 950 / 950 Other: Date of Last Bowel Movement 11/09/17 11/09/17 12/10/17 Narrative: GENERAL: Alert, NAD X 3. SKIN: Warm and dry. HEAD: Normocephalic. EYES: No scleral icterus. No injection or drainage. NECK: Supple, trachea midline. No JVD or lymphadenopathy. CARDIOVASCULAR: Regular rate and rhythm without murmurs, gallops, or rubs. RESPIRATORY: Breath sounds equal bilaterally. No accessory muscle use. GASTROINTESTINAL: Abdomen soft, non-tender, nondistended. MUSCULOSKELETAL: No cyanosis, or edema. BACK: Nontender without obvious deformity. No CVA tenderness. Results Procedures completed during hospitalization: None. Labs on day of discharge: Labs from last 24 hours 11/11/17 06:30 CBC w Diff Auto diff final WBC 9.1 RBC 3.51 L Hgb 11.2 L Hct 31.2 L MCV 88.9 D MCH 31.8 MCHC 35.8 RDW 12.6 Plt Count 243 MPV 8.1 Neut % (Auto) 66.9 Lymph % (Auto) 20.1 [place] % (Auto) 10.4 H Eos % (Auto) 2.2 Baso % (Auto) 0.4 Neut # (Auto) 6.2 Lymph # (Auto) 1.8 [place] # (Auto) 0.9 Eos # (Auto) 0.2 Baso # (Auto) 0.0 WBC Differential . Differential Comment . Preliminary micro results at discharge 11/09/17 18:11 Aerobic Blood Culture - Preliminary Blood - Peripheral No growth in 2 days Anaerobic Blood Culture - Preliminary No growth in 2 days 11/09/17 18:14 Aerobic Blood Culture - Preliminary Blood - Peripheral No growth in 2 days Anaerobic Blood Culture - Preliminary No growth in 2 days - Impressions ITS Impressions Chest CTA 11/09/17 16:45 CONCLUSION: 1. No evidence of pulmonary embolus. 2. There are patchy infiltrates in the posterior right upper lung as well as in the posterior right lower lung characteristic of pneumonia. Gallbladder Ultrasound 11/11/17 00:00 CONCLUSION: 1. Gallbladder wall thickening and pericholecystic fluid identified. Positive sonographic Castro's sign. These findings can be seen with acalculous cholecystitis. Discharge Plan - Discharge Disposition Patient Disposition: Discharge Home - Discharge Condition Condition: Fair - Discharge Order Discharge Orders: Discharge Order (Routine); Ordered 11/11/17 Ordered By: Aayush Byers - Discharge Details Anticipated Discharge Date: 11/11/17 - Physicians Team Primary Care Provider: Primary Care Mavis Cortez Attending Provider: Aayush Byers Other Providers: Charlie Cheek MD
[2017-11-11 14:42] VITALS: BP 135/82; PULSE 42; RESP 23
--- NOTE | 2017-11-11 14:56 | P.CON ---
History of Present Illness Requesting Physician: Jose Carlos Byers Primary Care Provider: No Primary Care Physician Family Provider: No Primary Care Physician Chief Complaint: Right sided chest pain, Dyspnea, Shoulder pain History of Present Illness: Patient is a 32-year-old female seen in consultation for Dr. Byers with a history of right lower lobe pneumonia with sepsis. The patient was admitted on Monday for this and has recovered; however she now has right sided subcostal pain that radiates to the epigastrium. She reports that it does not really go posteriorly between the shoulder blades. She is not having any problems with breathing at this time. Patient had ultrasound today which demonstrates thickened gallbladder wall and some pericholecystic fluid. I have been asked to see the patient for consideration of a calculus cholecystitis. The patient relates to me that she had British fries and a donut this morning, and she is not having any significant increase in her pain. Review of Systems All other systems reviewed negative except as stated in HPI PMFSH - History History Provided By: Patient - Medical History Medical History: Medical History (Last Updated 11/09/17 @ 17:15 by Rachelle Bishop) Bipolar 1 disorder - Surgical History Surgical History: Surgical History (Last Updated 11/09/17 @ 18:39 by Theresa Salgado RN) History of tonsillectomy and adenoidectomy - Tobacco History Second Hand Smoke Exposure: No Tobacco Use In Past 30 Days: No Smoking Status: Never smoker - Alcohol History How Often Do You Have a Drink Containing Alcohol: Never - Substance Use History Substance History: No History of Abuse - Travel History Recent Travel in the [place] Within the Last 8 Weeks: No Recent Travel Out of the Country Within the Last 8 Weeks: No - Immunization History Tetanus Immunization: Never Vaccinated Hx Influenza Vaccine This Season: No Medications and Allergies Allergies Allergy/AdvReac Type Severity Reaction Status Date / Time aripiprazole Allergy Severe TONGUE Verified 11/09/17 16:17 SWELLING buspirone Allergy Severe VERY Verified 11/09/17 16:17 AGGRESSIVE BEHAVIOR, RASH Home Medications Medication Instructions Recorded Confirmed Type bupropion HCl 150 mg PO QAM 11/09/17 11/09/17 History dextroamphetamine-amphetamine 10 mg PO DAILY 11/09/17 11/09/17 History [Adderall] fluoxetine 30 mg PO DAILY 11/09/17 11/09/17 History lamotrigine 50 mg PO HS 11/09/17 11/09/17 History Physical Exam Vital signs: Vital Signs 11/10/17 15:39 11/10/17 16:00 11/10/17 17:40 Temperature Pulse Rate 46 L 44 L 44 L Respiratory Rate 20 22 24 Blood Pressure 96/54 L 113/64 111/51 L Pulse Oximetry 11/10/17 18:00 11/10/17 19:00 11/10/17 20:00 Temperature 97.9 F Pulse Rate 44 L 44 L 45 L Respiratory Rate 24 20 20 Blood Pressure 111/51 L 112/63 106/69 Pulse Oximetry 97 97 11/10/17 21:00 11/10/17 22:00 11/10/17 23:00 Temperature Pulse Rate 46 L 40 L 42 L Respiratory Rate 22 22 17 Blood Pressure 110/64 111/58 L 105/50 L Pulse Oximetry 100 99 98 11/11/17 00:00 11/11/17 01:00 11/11/17 02:00 Temperature Pulse Rate 42 L 38 L 38 L Respiratory Rate 18 16 Blood Pressure 102/60 99/55 L Pulse Oximetry 98 11/11/17 03:00 11/11/17 04:00 11/11/17 05:00 Temperature 98.5 F Pulse Rate 38 L 82 38 L Respiratory Rate 16 15 17 Blood Pressure 99/55 L 99/58 L 111/66 Pulse Oximetry 95 94 L 95 11/11/17 06:00 11/11/17 07:00 11/11/17 08:00 Temperature 98.4 F Pulse Rate 46 L 40 L 38 L Respiratory Rate 15 18 19 Blood Pressure 123/87 135/77 126/72 Pulse Oximetry 95 11/11/17 09:00 11/11/17 10:00 Temperature Pulse Rate 38 L 36 L Respiratory Rate 22 19 Blood Pressure 116/68 135/74 Pulse Oximetry Intake & Output 11/10/17 11/11/17 11/11/17 18:59 06:59 18:59 Intake Total 4120 / 4120 5625 / 5625 1000 / 1000 Output Total 1500 / 1500 950 / 950 Balance 2620 / 2620 4675 / 4675 1000 / 1000 Weight 88.8 kg Intake: IV 2200 / 2200 1350 / 1350 1000 / 1000 NS Inj 1,000 ML @ 150 mls/hr IV 2000 / 2000 1000 / 1000 1000 / 1000 .CONT .[id number] [facility] Rx#: [id number] Levaquin 750 mg Premix Inj 150 150 / 150 ML @ 100 mls/hr IV.SIG Q24H [facility] Rx#:[id number] Zosyn 4.5 GM Premix 4.5 gm In 200 / 200 200 / 200 100 ml @ 200 mls/hr IV.SIG Q6H [facility] Rx#:[id number] Oral 1920 / 1920 650 / 650 Other 3625 / 3625 Output: Urine 1500 / 1500 950 / 950 Other: Date of Last Bowel Movement 11/09/17 11/09/17 12/10/17 - Constitutional no acute distress - Routine HEENT Exam Head: Present: normocephalic - Routine Neck Exam Present: supple - Routine Respiratory Exam Present: CTA bilaterally - Routine Cardiovascular Exam Present: RRR - Routine Abdominal Exam Present: soft, normoactive bowel sounds, tenderness (Right upper quadrant and epigastrium with some guarding), guarding Comments: No hernias noted - Routine Skin Exam Present: jaundice (None) Assessment and Plan - Assessment (1) RUQ abdominal pain Code(s): R10.11 - Right upper quadrant pain Status: Acute Plan: This patient has been eating a diet and her pneumonia has cleared, she would best be served by having surgery in the next week or 2 once her pulmonary status is stable and recovered. She should have a HIDA scan as an outpatient and if this is positive then I have explained to her that I would recommend removal of her gallbladder. If that is negative and she continues to do well and her right-sided chest wall and abdominal pain resolves, no further new intervention will be necessary. It is very possible she has a sympathetic reaction to the pneumonia and the gallbladder has some thickening due to this and not a primary acute inflammatory process of the gallbladder. She will return to see me in the office after the HIDA scan is complete; she has been instructed to contact me sooner if she develops upper abdominal pain prior to the test, or her office visit. She agrees to comply. - Plan HIDA scan this week Follow up in the office Discussed Condition With: Patient Mother Dr. Byers - Attending Attestation I attest that I had a [id number] encounter with the patient on the same day, and personally performed and documented my assessment and findings in the medical record. The following services were provided during this hospital visit: Chart data review, vital sign assessments/reviewing monitor data Review of consultation notes if present Medication orders/review and/or management Ordering and/or reviewing lab tests Ordering and/or interpreting/reviewing x-rays and/or diagnostic studies Care of the patient and discussion of the patient with the care team Documentation time To help prompt me to consider important information that might be impacting today's encounter and assessment, Information from prior notes written by myself or my colleagues may have been "brought forward/copy and pasted" into today's note.
== END 2017-11-11 14:38 | disposition home or self-care (01) ==
LOC: PHED 15:39 → PHEDA 18:39 → PHICU 21:44
PROVIDERS: ADMIT Hospitalist; ATTEND Hospitalist